=== PATIENT | female | born 1995 | race African-American/Black ===

== ENCOUNTER → 2016-11-10 | Outpatient (CLI) | payer OTHER | LOC: M LAB 15:18 | PROVIDERS: ATTEND Midwife | DX: Z11.4 Encounter for screening for human immunodeficiency virus [HIV] (principal) ==

== ENCOUNTER → 2018-12-31 | Outpatient (CLI) | payer OTHER ==
--- NOTE | 2018-12-31 16:09 | REP ---
RIGHT FOOT, FIVE VIEWS: There is no evidence of an acute fracture, dislocation or intrinsic bone disease. IMPRESSION: No fracture or dislocation. Electronically Signed by Jimy Butler MD 12/31/2018 04:15 P
== END ==
LOC: M ADAMS 15:44
PROVIDERS: ATTEND Physician Assistant Medical
DX: M79.671 Pain in right foot (principal)